=== PATIENT | male | born 1965 | race Caucasian/White ===

== ENCOUNTER 2017-06-06 19:50 | Emergency (ER) | payer SELFPAY ==
[2017-06-06 20:13] VITALS: BMI 31.7
[2017-06-06] MEDS ORDERED: DECADRON INJ IM ONE (21:48)
[2017-06-06] MEDS ORDERED: TORADOL 60 MG VIAL IM ONE (21:48)
[2017-06-06] MEDS ORDERED: FLEXERIL TAB 10 MG PO STA (21:49)
--- NOTE | 2017-06-06 21:53 | DR.GENAD ---
HPI - PCP Primary Care Physician: veda - Complaint/Symptoms Chief Complaint Doctors Comments: Patient is complaining of lower back pain for the past two days getting worst today after falling down the steps at home when his left leg gave out. states he has poor circulation in his legs and they give out at times and he was going down the steps and his legs gave out and he could not catch the railing so he fell down the steps to the ground earlier today. States the pain is 8 of 10. He denies dysuria, hematuria, cold, cough, fever or chills. State he took medicines earlier today but it did not help. Chief Complaint:: back pain Self Treatment fo Chief Complaint: pt took some muscle relaxers but didnot help. last medication taken zanaflew 4mg at around 1400 today - Nurses notes reviewed Nurses Notes Review: Yes - Source History Provided: Patient - Mode of Arrival Mode of Arrival: Ambulatory - Timing Onset of Chief Complaint: 06/03/17 Came on: Gradually - Duration Duration: Constant How lon Duration: Days - Location Location: walking and climbing steps - Severity Severity: Moderate - Modifying Factors Worsens:: movement Improves:: rest PMH - PMH Past Medical History: Yes Past Medical History: Coronary Artery Disease, Dyslipidemia, GERD, Hypertension Past Medical History Comment: pad Past Surgical History: Yes Surgical History: Angioplasty/Stents, Appendectomy - Family History History of Family Medical Conditions: Yes Family Medical History: Diabetes Mellitus, Hypertension - Social History Does patient currently use any type of tobacco product: Yes Have you used tobacco products in the last 12 months: Yes Type of Tobacco Use: Cigarettes Does any household member use tobacco: No Alcohol Use: None Do you use any recreational Drugs:: No Lives With: Alone, Spouse Lives Where: Home - infectious screening In the last 2 months have you had wt loss of >10#?: NO Have you had fever, night sweats or hemotysis?: No Have you traveled outside the country in the last 6 months?: No Isolation: Standard ROS - Review of Systems Constitutional: No Symptoms Reported. negative: See HPI, Chills, Diaphoresis, Fever, Malaise, Weakness, Irritable, Fatigue, Loss of Appetite, Other Eyes: No Symptoms Reported. negative: See HPI, Eye Pain, Blurred Vision, Tearing, Discharge, Photophobia, Diplopia, Other ENTM: No Symptoms Reported. negative: See HPI, Ear Pain, Ear Discharge, Pulling on Ears, Hearing Loss, Nose Pain, Nose Discharge, Epistaxis, Nose Congestion, Mouth Pain, Mouth Swelling, Loose Teeth, Drooling, Throat Pain, Throat Swelling, Ear Foreign Body Respiratoy: No Symptoms Reported. negative: See HPI, Productive Cough, Non- Productive Cough, Moist Cough, Dry Cough, Hacking Cough, Barking Cough, Brassy Cough, Orthopnea, Short of Breath, Stridor, Wheezing, Hemoptysis, Other Cardiovascular: No Symptoms Reported. negative: See HPI, Chest Pain, Edema, Palpitations, Syncope, Cyanosis, Skin Mottling, Other Gastrointestinal/Abdominal: No Symptoms Reported. negative: See HPI, Abdominal Pain, Constipation, Diarrhea, Nausea, Vomiting, Food Intolerance, Other Genitourinary: No Symptoms Reported. negative: See HPI, Discharge, Dysuria, Frequency, Hematuria, Pain, Bleeding, Other Neurological: No Symptoms Reported, Problems Walking. negative: See HPI, Anxiety, Depressed, Emotional Problems, Headache, Numbness, Paresthesia, Pre- existing Deficit, Seizure, Tingling, Tremors, Weakness, Dizziness, Speech Problem, Other Musculoskeletal: No Symptoms Reported, Back Pain Integumentary: No Symptoms Reported Hematologic/Lymphatic: No Symptoms Reported Endocrine: No Symptoms Reported Psychiatric: No Symptoms Reported. negative: See HPI, Anxiety, Depression, Hallucinations, Excessive crying, Suicidal, Other PE - Vital Signs Vitals: Temperature 98.4 F Pulse Rate 59 Respiratory Rate 17 Blood Pressure 167/97 O2 Sat by Pulse Oximetry 99 - General Limitations: No Limitations General Appearance: Alert, In Distress (moderate). negative: In No Apparent Distress, Appears Intoxicated, Anxious, Lethargic, Obtunded, Obese, Cachectic, Other - Head Head Exam: Normal Inspection, Atraumatic, Normocephalic - Eyes Eye exam: Normal Appearance, PERRL, EOMI. negative: Scleral Icterus, Conjunctival Injection, Nystagmus, Miosis, Mydrasis, Periorbital Swelling, Periorbital Tenderness, Other - ENT ENT Exam: Normal Exam, Normal Oropharynx, Normal External Ear Exam, Mucous Membranes Moist, TM's Normal Bilaterally External Ear Exam: Normal External Inspection TM/Canal Exam: Bilateral Normal Nose Exam: Normal Nose Exam Mouth Exam: Normal Inspection. negative: Drooling, Trismus, Lip Swelling, Tongue Elevation, Tongue Swelling, Laceration, Other Throat Exam: Normal Inspection. negative: Tonsillar Erythema, Tonsillomegaly, Tonsillar Exudate, R Peritonsillar Mass, L Peritonsillar Mass, Muffled Voice, Other - Neck Neck Exam: Normal Inspection, Full ROM, Trachea Midline. negative: Tenderness, Meningismus, Lymphadenopathy, Thyromegaly, Other - Chest Chest Inspection: Normal Inspection, Symmetric Chest Wall Rise. negative: Tenderness, Rash, Abscess, Other - Respiratory Respiratory Exam: Normal Lung Sounds Bilat Respiratory Exam: Bilateral Clear to Auscultation - Cardiovascular Cardiovascular Exam: Regular Rate, Normal Rhythm, Normal Heart Sounds - Abdominal Exam Abdominal Exam: Normal Inspection, Normal Bowel Sounds, Soft Abdominal Tenderness: negative: RUQ, RLQ, LUQ, LLQ, Epigastrium, Suprapubic, Diffuse, Mild, Moderate, Severe, Other - Extremities Extremities Exam: Normal Inspection, Full ROM, Normal Capillary Refill. negative: Tenderness - Back Back Exam: Normal Inspection, Full ROM. negative: Tenderness - Neurologic Neurological Exam: Alert, Oriented X3, CN II-XII Intact, Normal Gait, Reflexes Normal - Psychiatric Psychiatric Exam: Normal Affect, Normal Mood. negative: Depressed, Agitated, Anxious, Flat Affect, Manic, Homicidal Ideation, Suicidal Ideation, Other - Skin Skin Exam: Warm, Dry, Intact, Normal Color. negative: Rash, Cyanosis, Diaphoresis, Erythema, Pallor, Mottled, Other ROR - Labs Reviewed Laboratory Results Reviewed?: Yes (all labs and x-ray results reviewed and discussed with patient) Laboratory: Specimen Type Clean catch urine 06/06/17 21:53 Urine Color Yellow (YELLOW) 06/06/17 21:53 Urine Appearance Clear (CLEAR) 06/06/17 21:53 Urine pH 6.0 (5.0 - 8.0) 06/06/17 21:53 Ur Specific [place] 1.010 (1.000-1.030) 06/06/17 21:53 Urine Protein Negative (NEGATIVE) 06/06/17 21:53 Urine Glucose (UA) Negative (NEGATIVE) 06/06/17 21:53 Urine Ketones Negative (NEGATIVE) 06/06/17 21:53 Urine Occult Blood Negative (NEGATIVE) 06/06/17 21:53 Urine Nitrite Negative (NEGATIVE) 06/06/17 21:53 Urine Bilirubin Negative (NEGATIVE) 06/06/17 21:53 Urine Urobilinogen Normal (NORMAL) 06/06/17 21:53 Ur Leukocyte Esterase Negative (NEGATIVE) 06/06/17 21:53 Urine RBC 0-3 /HPF (NEGATIVE) 06/06/17 21:53 Urine WBC 0-3 /HPF (NEGATIVE) 06/06/17 21:53 Ur Squamous Epith Cells Rare /HPF (NEGATIVE) 06/06/17 21:53 Urine Bacteria Negative /HPF (NEGATIVE) 06/06/17 21:53 Ur Culture Indicated? No/not indicated 06/06/17 21:53 - XRAY XRAY Interpreted by: Radiologist (CT lumbar spine: No acute lumbar spine fracture or subluxation) - Diagnosis Discharge Problem: Fall (on) (from) other stairs and steps, initial encounter, Musculoskeletal back pain Low back pain Qualifiers: Sciatica presence: without sciatica - Discharge Plan Disposition: 01 HOME, SELF-CARE Condition: Stable Prescriptions: Cyclobenzaprine HCl [FLEXERIL 10 MG *] 10 mg PO BID #14 tab Ibuprofen [MOTRIN TAB 800 MG *] 800 mg PO BID PRN #40 tab PRN Reason: Pain/Inflammation - Follow ups/Referrals Follow ups/Referrals: PHAM SAMAYOA [Primary Care Provider] - 3 days GWENDOLYN LE [STAFF PHYSICIAN] - 3 days - Instructions Instructions: Back Pain, Adult, [id number], Fall Prevention in the Home, Easy -to-Read, Musculoskeletal Pain
[2017-06-06] MEDS ORDERED: TORADOL 60 MG VIAL ONE (22:01)
[2017-06-06] MEDS ORDERED: DECADRON INJ ONE (22:01)
[2017-06-06] MEDS ORDERED: FLEXERIL TAB 10 MG ONE (22:01)
[2017-06-06 22:34] LABS: APPEARANCE,URINE CLEAR (CLEAR); COLOR,URINE YELLOW (YELLOW)
[2017-06-06 22:35] LABS: BILIRUBIN,URINE NEGATIVE (NEGATIVE); BLOOD/HEMOGLOBIN,URINE NEGATIVE (NEGATIVE); GLUCOSE, URINE NEGATIVE (NEGATIVE); KETONES,URINE NEGATIVE (NEGATIVE); NITRITES,URINE NEGATIVE (NEGATIVE); PROTEIN,URINE NEGATIVE (NEGATIVE); UROBILINOGEN,URINE NORMAL (NORMAL)
[2017-06-06 22:36] LABS: BACTERIA,URINE NEGATIVE /HPF (NEGATIVE); LEUKOCYTE ESTERASE ,URINE NEGATIVE (NEGATIVE); RBC,URINE 0-3 /HPF (NEGATIVE); SQUAMOUS EPITHELIAL CELL,UR RARE /HPF (NEGATIVE)
--- NOTE | 2017-06-06 23:33 | CT ---
CT lumbar spine without contrast Indication: Low back pain after fall Comparison: None Technique: CT images of the lumbar spine were obtained without contrast. Automatic exposure control w as utilized. Findings: The lumbar spine alignment is normal. No acute fracture or subluxation is seen. There is no evidence for high-grade neural foraminal or spinal canal narrowing for within CT limitations. Impression: No acute lumbar spine fracture or subluxation. Reported By:
[2017-06-07 00:17] VITALS: BP 155/88
== END 2017-06-07 00:10 | disposition home or self-care (01) ==
LOC: EDBD 19:50 → ER 19:50
DX: M79.1 Myalgia (principal); M54.5 Low back pain; W10.9XXA Fall (on) (from) unspecified stairs and steps, initial encounter
CPT/HCPCS: 72131; 81001; 96372; 99282; 99283; J1100; J1885

== ENCOUNTER 2017-08-02 10:35 | Emergency (ER) | payer SELFPAY ==
[2017-08-02 10:42] VITALS: BP 174/83; BMI 31.0
--- NOTE | 2017-08-02 11:20 | DR.GENAD ---
HPI - PCP Primary Care Physician: JUMANA - Complaint/Symptoms Chief Complaint Doctors Comments: Patient states that he has a history of back and neck pain. He denies any trauma. Chief Complaint:: PT C/O HAVING NECK AND BACK OF HEAD PAIN AND STIFFNESS. PT STATES THESS SYMPTOMS STARTED THURSDAY AND HE CAN NOT MOVE HIS NECK WITHOUT MOVING HIS WHOLE BODY. - Source History Provided: Patient - Mode of Arrival Mode of Arrival: Ambulatory - Timing Onset of Chief Complaint: 07/31/17 PMH - PMH Past Medical History: Yes Past Medical History: Coronary Artery Disease, Dyslipidemia, GERD, Hypertension Past Medical History Comment: BLOOD CLOTS (LEG) Past Surgical History: Yes Surgical History: Angioplasty/Stents, Appendectomy - Family History History of Family Medical Conditions: Yes Family Medical History: Diabetes Mellitus, Hypertension - Social History Does any household member use tobacco: No Alcohol Use: None Do you use any recreational Drugs:: No Lives With: Family Lives Where: Home - infectious screening In the last 2 months have you had wt loss of >10#?: NO Have you had fever, night sweats or hemotysis?: No Have you traveled outside the country in the last 6 months?: No Isolation: Standard ROS - Review of Systems Constitutional: No Symptoms Reported Eyes: No Symptoms Reported ENTM: No Symptoms Reported Respiratoy: No Symptoms Reported Cardiovascular: No Symptoms Reported Gastrointestinal/Abdominal: No Symptoms Reported Genitourinary: No Symptoms Reported Neurological: No Symptoms Reported Musculoskeletal: No Symptoms Reported Integumentary: No Symptoms Reported Hematologic/Lymphatic: No Symptoms Reported Endocrine: No Symptoms Reported Psychiatric: No Symptoms Reported All Other Systems: Reviewed and Negative PE - Vital Signs Vitals: Temperature 97.8 F Pulse Rate 62 Respiratory Rate 20 Blood Pressure [Right Arm] 155/88 Blood Pressure 174/83 O2 Sat by Pulse Oximetry 97 - General General Appearance: Alert - Head Head Exam: Normal Inspection, Atraumatic - Eyes Eye exam: Normal Appearance, PERRL, EOMI - ENT ENT Exam: Normal Exam External Ear Exam: Normal External Inspection TM/Canal Exam: Bilateral Normal Nose Exam: Normal Nose Exam, Sinus Tenderness Mouth Exam: Normal Inspection Throat Exam: Normal Inspection - Neck Neck Exam: Normal Inspection - Chest Chest Inspection: Normal Inspection - Respiratory Respiratory Exam: Normal Lung Sounds Bilat Respiratory Exam: Bilateral Clear to Auscultation - Cardiovascular Cardiovascular Exam: Regular Rate, Normal Rhythm - Abdominal Exam Abdominal Exam: Normal Inspection Abdominal Tenderness: negative: RUQ, RLQ, LUQ, LLQ, Epigastrium, Suprapubic, Diffuse, Mild, Moderate, Severe, Other - Extremities Extremities Exam: Normal Inspection, Full ROM - Back Back Exam: Normal Inspection, Full ROM - Neurologic Neurological Exam: Alert, Oriented X3, CN II-XII Intact - Psychiatric Psychiatric Exam: Normal Affect, Normal Mood - Skin Skin Exam: Warm, Dry, Intact ROR - XRAY XRAY Interpreted by: Radiologist (C-Spine: negative) - Diagnosis Discharge Problem: Cervical spine pain - Discharge Plan Condition: Stable - Follow ups/Referrals Follow ups/Referrals: JUAN DENNEY [Primary Care Provider] - 3 days - Instructions
--- NOTE | 2017-08-02 12:37 | RAD ---
HISTORY: Neck and back pain Study: Three-view cervical spine Comparison: None Findings: AP and lateral radiographs of the cervical spine demonstrate normal alignment from the craniocervical junction to the level of T1. The central canal appears patent without posterior element abnormality . No prevertebral soft tissue swelling can be identified. The odontoid appears intact. The lateral masses of C1 align with the body of C2. IMPRESSION: 1. Unremarkable examination of the cervical spine. Reported By:
[2017-08-02] MEDS ORDERED: TORADOL 60 MG VIAL IM ONE (13:00)
[2017-08-02] MEDS ORDERED: TORADOL 60 MG VIAL ONE (13:04)
== END 2017-08-02 13:13 | disposition home or self-care (01) ==
LOC: ER 10:46
DX: M54.2 Cervicalgia (principal)
CPT/HCPCS: 72040; 96372; 99282; 99283; J1885

== ENCOUNTER 2017-08-16 20:19 | Emergency (ER) | payer SELFPAY ==
[2017-08-16 20:28] VITALS: BP 149/91; BMI 30.5
--- NOTE | 2017-08-16 21:43 | DR.GENAD ---
HPI - PCP Primary Care Physician: jim gasca - HPI Comment HPI Comment: NO TRAUMA. PAIN GETTING SEVERE. NO FEVER. - Complaint/Symptoms Chief Complaint Doctors Comments: CHEST PAIN WITH SOB FOR FEW DAYS. OCCIPITAL HEADACHE AND PAIN. Chief Complaint:: Patient states shortness of breath; head pain- occipital. Patient reports ongoing for two weeks. Admits to moist, productive cough. Patient reports chest pain is related to shortness of breath. Patient reports head pain is worsened with lying flat. Self Treatment fo Chief Complaint: Toradol oral, Ibuprofen, Tylenol, with no improvement. - Nurses notes reviewed Nurses Notes Review: Yes - Source History Provided: Patient - Mode of Arrival Mode of Arrival: Ambulatory - Timing Onset of Chief Complaint: 08/02/17 Came on: Suddenly - Duration Duration: Constant Duration: Days - Severity Severity: Moderate PMH - PMH Past Medical History: Yes Past Medical History: Coronary Artery Disease, Dyslipidemia, GERD, Hypertension Past Surgical History: Yes Surgical History: Angioplasty/Stents, Appendectomy - Family History History of Family Medical Conditions: Yes Family Medical History: Diabetes Mellitus, Hypertension - Social History Type of Tobacco Use: Cigarettes Alcohol Use: None Do you use any recreational Drugs:: No Lives With: Spouse Lives Where: Home - infectious screening In the last 2 months have you had wt loss of >10#?: NO Have you had fever, night sweats or hemotysis?: No Have you traveled outside the country in the last 6 months?: No Isolation: Standard ROS - Review of Systems Constitutional: Fever. negative: Chills Eyes: negative: Eye Pain, Discharge ENTM: Nose Discharge, Nose Congestion. negative: Ear Pain Respiratoy: No Symptoms Reported Cardiovascular: No Symptoms Reported Gastrointestinal/Abdominal: No Symptoms Reported Genitourinary: No Symptoms Reported Neurological: Headache, Dizziness Musculoskeletal: Muscle Pain Integumentary: No Symptoms Reported Hematologic/Lymphatic: No Symptoms Reported Endocrine: No Symptoms Reported All Other Systems: Reviewed and Negative PE - Vital Signs Vitals: Temperature 98.2 F Pulse Rate 72 Respiratory Rate 20 Blood Pressure [Right Arm] 155/88 Blood Pressure 149/91 O2 Sat by Pulse Oximetry 97 - General Limitations: No Limitations General Appearance: Alert - Head Head Exam: Normal Inspection - Eyes Eye exam: Normal Appearance - ENT ENT Exam: Normal External Ear Exam External Ear Exam: Normal External Inspection TM/Canal Exam: Bilateral Bulging Nose Exam: Sinus Tenderness Mouth Exam: Normal Inspection Throat Exam: Tonsillar Erythema. negative: Tonsillomegaly, Tonsillar Exudate - Neck Neck Exam: Trachea Midline - Chest Chest Inspection: Symmetric Chest Wall Rise - Respiratory Respiratory Exam: Normal Lung Sounds Bilat Respiratory Exam: Bilateral Clear to Auscultation - Cardiovascular Cardiovascular Exam: Regular Rate, Normal Rhythm, Normal Heart Sounds - Abdominal Exam Abdominal Exam: Normal Bowel Sounds, Soft. negative: Tenderness - Extremities Extremities Exam: Normal Inspection - Back Back Exam: Normal Inspection - Neurologic Neurological Exam: Alert, Oriented X3 - Psychiatric Psychiatric Exam: Normal Affect, Normal Mood - Skin Skin Exam: Normal Color MDM - Differential Diagnosis Differential Diagnosis: CVA, BRAIN TUMOR, SINUSITIS, MASTIODITIS Course - Treatment Treatment: SEE ORDERS. - Education/Counseling Education/Counseling: Patient, Education Educated On: Diagnosis, Needs for Follow Up ROR - Labs Reviewed Laboratory Results Reviewed?: Yes Result Diagrams: 08/16/17 21:53 08/16/17 21:53 Laboratory: WBC 17.3 X10^3/uL (3.6-10.0) H 08/16/17 21:53 RBC 5.78 X10^6/uL (4.7-6.0) 08/16/17 21:53 Hgb 15.9 g/dL (13.5-18.0) 08/16/17 21:53 Hct 46.1 % (42.0-54.0) 08/16/17 21:53 MCV 79.7 fL (80.0-100.0) L 08/16/17 21:53 MCH 27.4 pg (27.0-34.0) 08/16/17 21:53 MCHC 34.4 g/dL (33.0-35.0) 08/16/17 21:53 RDW 14.6 % (11.6-16.5) 08/16/17 21:53 Plt Count 309 X10^3/uL (150.0-450.0) 08/16/17 21:53 MPV 8.4 fL (7.4-11.0) 08/16/17 21:53 Neut % 60.3 % (42.0-75.0) 08/16/17 21:53 Lymph % 29.0 % (21.0-51.0) 08/16/17 21:53 [place] % 8.1 % (0.0-13.0) 08/16/17 21:53 Eos % 1.7 % (0.9-2.9) 08/16/17 21:53 Baso % 0.9 % (0.2-1.0) 08/16/17 21:53 Neut # 10.4 x10^3/uL (2.2-4.8) H 08/16/17 21:53 Lymph # 5.0 X10^3/uL (1.3-2.9) H 08/16/17 21:53 [place] # 1.4 x10^3/uL (0.3-0.8) H 08/16/17 21:53 Eos # 0.3 x10^3/uL (0.0-0.2) H 08/16/17 21:53 Baso # 0.2 X10^3/uL (0.0-0.1) H 08/16/17 21:53 Absolute Nucleated RBC 0.1 /100WBC 08/16/17 21:53 Sodium 138 mmol/L (136-145) 08/16/17 21:53 Corrected Sodium TNP 08/16/17 21:53 Potassium 3.9 mmol/L (3.5-5.1) 08/16/17 21:53 Chloride 102 mmol/L (98-107) 08/16/17 21:53 Carbon Dioxide 24.2 mmol/L (21-32) 08/16/17 21:53 BUN 17 mg/dL (7-18) 08/16/17 21:53 Creatinine 1.12 mg/dL (0.70-1.30) 08/16/17 21:53 Est GFR (MDRD) Af Amer > 60 (>60) 08/16/17 21:53 Est GFR (MDRD) Non-Af > 60 (>60) 08/16/17 21:53 Glucose 110 mg/dL (65-99) H 08/16/17 21:53 Calcium 9.0 mg/dL (8.5-10.1) 08/16/17 21:53 Corrected Calcium TNP 08/16/17 21:53 Total Bilirubin 0.10 mg/dL (0.2-1.0) L 08/16/17 21:53 AST 7 Units/L (15-37) L 08/16/17 21:53 ALT 28 Units/L (12-78) 08/16/17 21:53 Alkaline Phosphatase 110 Units/L (46-116) 08/16/17 21:53 Total Protein 7.0 g/dL (6.4-8.2) 08/16/17 21:53 Albumin 3.7 g/dL (3.4-5.0) 08/16/17 21:53 Globulin 3.3 g/dL (2.5-4.5) 08/16/17 21:53 Albumin/Globulin Ratio 1.1 Ratio (1.1-2.1) 08/16/17 21:53 Specimen Type Clean catch urine 08/16/17 21:44 Urine Color Yellow (YELLOW) 08/16/17 21:44 Urine Appearance Clear (CLEAR) 08/16/17 21:44 Urine pH 6.0 (5.0 - 8.0) 08/16/17 21:44 Ur Specific [place] 1.020 (1.000-1.030) 08/16/17 21:44 Urine Protein Negative (NEGATIVE) 08/16/17 21:44 Urine Glucose (UA) Negative (NEGATIVE) 08/16/17 21:44 Urine Ketones Negative (NEGATIVE) 08/16/17 21:44 Urine Occult Blood Negative (NEGATIVE) 08/16/17 21:44 Urine Nitrite Negative (NEGATIVE) 08/16/17 21:44 Urine Bilirubin Negative (NEGATIVE) 08/16/17 21:44 Urine Urobilinogen Normal (NORMAL) 08/16/17 21:44 Ur Leukocyte Esterase Negative (NEGATIVE) 08/16/17 21:44 Urine RBC 0-3 /HPF (NEGATIVE) 08/16/17 21:44 Urine WBC 0-3 /HPF (NEGATIVE) 08/16/17 21:44 Ur Squamous Epith Cells Rare /HPF (NEGATIVE) 08/16/17 21:44 Urine Bacteria Negative /HPF (NEGATIVE) 08/16/17 21:44 Ur Culture Indicated? No/not indicated 08/16/17 21:44 Influenza Type A (PCR) Negative (NEGATIVE) 08/16/17 21:44 Influenza Type B (PCR) Negative (NEGATIVE) 08/16/17 21:44 - XRAY XRAY Interpreted by: Radiologist XRAY Findings: REPORT DISCUSS WITH PATIENT. - EKG Rhythm: NSR (EKG NOTED) - Diagnosis Discharge Problem: Sinus headache, Musculoskeletal pain Sinusitis Qualifiers: Sinusitis location: unspecified location Chronicity: acute Recurrence: not specified as recurrent Qualified Code(s): J01.90 - Acute sinusitis, unspecified - Discharge Plan Disposition: 01 HOME, SELF-CARE Condition: Stable Prescriptions: Amoxicillin/Potassium Clav [Augmentin Xr 1,000-62.5 Tab] 1 tab PO Q12H #20 tab.sr - Follow ups/Referrals Follow ups/Referrals: JIM GASCA [Primary Care Provider] - 08/17/17 - Instructions Instructions: Sinusitis, Adult, [id number], Sinus Headache, Musculoskeletal Pain Additional Instructions: RETURN TO ED IF WORSE.
[2017-08-16 22:02] LABS: BILIRUBIN,URINE NEGATIVE (NEGATIVE); BLOOD/HEMOGLOBIN,URINE NEGATIVE (NEGATIVE); GLUCOSE, URINE NEGATIVE (NEGATIVE); KETONES,URINE NEGATIVE (NEGATIVE); LEUKOCYTE ESTERASE ,URINE NEGATIVE (NEGATIVE); NITRITES,URINE NEGATIVE (NEGATIVE); PROTEIN,URINE NEGATIVE (NEGATIVE); UROBILINOGEN,URINE NORMAL (NORMAL)
[2017-08-16 22:02] LABS: BASOPHILS # (AUTO) 0.2 X10^3/uL (0.0-0.1); BASOPHILS % (AUTO) 0.9 % (0.2-1.0); EOSINOPHILS # (AUTO) 0.3 x10^3/uL (0.0-0.2); EOSINOPHILS % (AUTO) 1.7 % (0.9-2.9); HEMATOCRIT 46.1 % (42.0-54.0); HEMOGLOBIN 15.9 g/dL (13.5-18.0); MEAN CORPUSCULAR HEMOGLOBIN 27.4 pg (27.0-34.0); MEAN CORPUSCULAR HGB CONC 34.4 g/dL (33.0-35.0); MEAN CORPUSCULAR VOLUME 79.7 fL (80.0-100.0); MEAN PLATELET VOLUME 8.4 fL (7.4-11.0); MONOCYTES # (AUTO) 1.4 x10^3/uL (0.3-0.8); MONOCYTES % (AUTO) 8.1 % (0.0-13.0); NEUTROPHILS # (AUTO) 10.4 x10^3/uL (2.2-4.8); NEUTROPHILS % (AUTO) 60.3 % (42.0-75.0); PLATELET COUNT 309 X10^3/uL (150.0-450.0); RED BLOOD COUNT 5.78 X10^6/uL (4.7-6.0); RED CELL DISTRIBUTION WIDTH 14.6 % (11.6-16.5); WHITE BLOOD COUNT 17.3 X10^3/uL (3.6-10.0)
[2017-08-16 22:15] LABS: ALANINE AMINOTRANSFERASE 28 Units/L (12-78); ALBUMIN 3.7 g/dL (3.4-5.0); ALKALINE PHOSPHATASE 110 Units/L (46-116); ASPARTATE AMINO TRANSFERASE 7 Units/L (15-37); BLOOD UREA NITROGEN 17 mg/dL (7-18); CARBON DIOXIDE 24.2 mmol/L (21-32); CHLORIDE 102 mmol/L (98-107); CREATININE 1.12 mg/dL (0.70-1.30); SODIUM 138 mmol/L (136-145); eGFR BLACK RACES > 60 (>60); eGFR NON BLACK RACES > 60 (>60)
--- NOTE | 2017-08-16 22:15 | CT ---
CT brain without contrast Indication: Occipital headache Comparison: None available Technique: Multiple axial images of the brain were obtained from the skull base to the vertex without administra tion of IV contrast. Findings: No acute intraparenchymal hemorrhage or mass can be identified. No extra-axial fluid collections are seen. No alteration in the attenuation of the brain parenchyma can be identified to suggest acute o r subacute ischemic change. The ventricular system is symmetric and nondilated. The extracranial st ructures are grossly unremarkable. IMPRESSION: 1. No acute intracranial process is identified. Reported By:
--- NOTE | 2017-08-16 22:16 | RAD ---
HISTORY: Chest pain Study: Single-view chest. Comparison: None. Findings: The trachea is midline. The cardiac silhouette is unremarkable. The lungs are clear without focal i nfiltrate or effusion. The bony thorax is unremarkable. IMPRESSION: 1. No acute cardiopulmonary disease. Reported By:
[2017-08-16 22:18] LABS: APPEARANCE,URINE CLEAR (CLEAR); BACTERIA,URINE NEGATIVE /HPF (NEGATIVE); COLOR,URINE YELLOW (YELLOW); RBC,URINE 0-3 /HPF (NEGATIVE); SQUAMOUS EPITHELIAL CELL,UR RARE /HPF (NEGATIVE)
[2017-08-16] MEDS ORDERED: NORFLEX INJ IM ONE (23:33)
[2017-08-16] MEDS ORDERED: TORADOL 60 MG VIAL IM ONE (23:33)
[2017-08-16] MEDS ORDERED: TORADOL 30 MG VIAL ONE (23:35)
[2017-08-16] MEDS ORDERED: NORFLEX INJ ONE (23:36)
[2017-08-16] MEDS ORDERED: MORPHINE SULFATE INJ 4 MG IM ONE (23:50)
[2017-08-16] MEDS ORDERED: AMOXIL CAP 500 MG PO ONE ×2 (23:52→23:59)
[2017-08-16] MEDS ORDERED: MORPHINE SULFATE INJ 4 MG ONE (23:59)
== END 2017-08-17 00:32 | disposition home or self-care (01) ==
LOC: ER 20:19
DX: J01.80 Other acute sinusitis (principal); R51 Headache; M79.1 Myalgia
CPT/HCPCS: 36415; 70450; 71045; 80053; 81001; 85025; 87502; 93005; 93010; 96372; 99283; J1885; J2270; J2360

== ENCOUNTER 2017-08-20 13:55 | Emergency (ER) | payer SELFPAY ==
[2017-08-20 13:56] VITALS: BP 149/91
[2017-08-20 14:06] VITALS: BMI 30.5
--- NOTE | 2017-08-20 16:16 | DR.HEADACH ---
HPI - Time Seen Time seen: 16:15 - Primary Care Physician Primary Care Physician: LUCIO DENNEY - HPI Comment HPI Comment: He was referred for re-evaluation of elevated WBC by her PCP. The records indicates that he was seen here on 08/16/17 and dx. with Sinusitis. He was issued an rx. for Augmentin 1000mg, which he never got filled as the cost to him was $140s. He still has the headache complain. - Complaint/Symptoms Chief Complaint:: PT STATES " WHEN I WAS HERE MY BLOOD COUNT WAS 17, 000 AND I COULD NOT AFFORD TO GET MY ABX SO I CALLED MY DOCTOR AND I WAS TOLD TO COME AND GET CHECKED B/C I MAY BE SEPTIC". Self Treatment fo Chief Complaint: PT WAS GIVEN MEDS WHILE IN ER , - Source History Provided: Patient - Mode of Arrival Mode of Arrival: Ambulatory - Timing Onset of Chief Complaint: 07/28/17 PMH - PMH Past Medical History: Yes Past Medical History: Coronary Artery Disease, Dyslipidemia, GERD, Hypertension Past Medical History Comment: DVT.S , HTN , TIA, Past Surgical History: Yes Surgical History: Angioplasty/Stents - Family History History of Family Medical Conditions: No Family Medical History: Diabetes Mellitus, Hypertension - Social History Does patient currently use any type of tobacco product: Yes Have you used tobacco products in the last 12 months: Yes Type of Tobacco Use: Cigarettes How many years tobacco product used: 30 Does any household member use tobacco: No Alcohol Use: None Do you use any recreational Drugs:: No Lives With: Family Lives Where: Home - infectious screening In the last 2 months have you had wt loss of >10#?: NO Have you had fever, night sweats or hemotysis?: No Have you traveled outside the country in the last 6 months?: No Isolation: Standard ROS - Review of Systems Constitutional: No Symptoms Reported Eyes: No Symptoms Reported ENTM: No Symptoms Reported Respiratoy: No Symptoms Reported Cardiovascular: No Symptoms Reported Gastrointestinal/Abdominal: No Symptoms Reported Genitourinary: No Symptoms Reported Neurological: Headache Musculoskeletal: No Symptoms Reported Integumentary: No Symptoms Reported Hematologic/Lymphatic: No Symptoms Reported Endocrine: No Symptoms Reported Psychiatric: No Symptoms Reported PE - Vital Signs Vitals: Temperature 97.7 F Respiratory Rate 20 Blood Pressure [Right Arm] 155/88 Blood Pressure 149/91 - General General Appearance: Alert, In No Apparent Distress - Head Head Exam: Normal Inspection - Eyes Eye exam: Normal Appearance - ENT ENT Exam: Normal Exam - Neck Neck Exam: Normal Inspection, Full ROM - Chest Chest Inspection: Normal Inspection - Respiratory Respiratory Exam: Normal Lung Sounds Bilat - Cardiovascular Cardiovascular Exam: Regular Rate, Normal Rhythm, +S1, +S2 - Abdominal Exam Abdominal Exam: Normal Inspection, Normal Bowel Sounds, Soft - Extremities Extremities Exam: Normal Inspection, Full ROM - Back Back Exam: Normal Inspection - Neurologic Neurological Exam: Alert, Oriented X3 - Psychiatric Psychiatric Exam: Normal Affect, Normal Mood - Skin Skin Exam: Warm, Dry, Intact, Normal Color ROR - Labs Reviewed Result Diagrams: 08/20/17 16:37 Laboratory: WBC 13.3 X10^3/uL (3.6-10.0) H 08/20/17 16:37 RBC 5.68 X10^6/uL (4.7-6.0) 08/20/17 16:37 Hgb 15.9 g/dL (13.5-18.0) 08/20/17 16:37 Hct 45.4 % (42.0-54.0) 08/20/17 16:37 MCV 79.8 fL (80.0-100.0) L 08/20/17 16:37 MCH 27.9 pg (27.0-34.0) 08/20/17 16:37 MCHC 35.0 g/dL (33.0-35.0) 08/20/17 16:37 RDW 14.5 % (11.6-16.5) 08/20/17 16:37 Plt Count 303 X10^3/uL (150.0-450.0) 08/20/17 16:37 MPV 8.5 fL (7.4-11.0) 08/20/17 16:37 Neut % 60.6 % (42.0-75.0) 08/20/17 16:37 Lymph % 27.1 % (21.0-51.0) 08/20/17 16:37 Placer % 9.8 % (0.0-13.0) 08/20/17 16:37 Eos % 1.6 % (0.9-2.9) 08/20/17 16:37 Baso % 0.9 % (0.2-1.0) 08/20/17 16:37 Neut # 8.1 x10^3/uL (2.2-4.8) H 08/20/17 16:37 Lymph # 3.6 X10^3/uL (1.3-2.9) H 08/20/17 16:37 Placer # 1.3 x10^3/uL (0.3-0.8) H 08/20/17 16:37 Eos # 0.2 x10^3/uL (0.0-0.2) 08/20/17 16:37 Baso # 0.1 X10^3/uL (0.0-0.1) 08/20/17 16:37 Absolute Nucleated RBC 0.0 /100WBC 08/20/17 16:37 - Diagnosis Discharge Problem: Sinusitis - Discharge Plan Disposition: 01 HOME, SELF-CARE Condition: Stable - Follow ups/Referrals Follow ups/Referrals: NFD,None [Primary Care Provider] - 3 days - Instructions
[2017-08-20 16:44] LABS: BASOPHILS # (AUTO) 0.1 X10^3/uL (0.0-0.1); BASOPHILS % (AUTO) 0.9 % (0.2-1.0); EOSINOPHILS # (AUTO) 0.2 x10^3/uL (0.0-0.2); EOSINOPHILS % (AUTO) 1.6 % (0.9-2.9); HEMATOCRIT 45.4 % (42.0-54.0); HEMOGLOBIN 15.9 g/dL (13.5-18.0); LYMPHOCYTES # (AUTO) 3.6 X10^3/uL (1.3-2.9); LYMPHOCYTES % (AUTO) 27.1 % (21.0-51.0); MEAN CORPUSCULAR HEMOGLOBIN 27.9 pg (27.0-34.0); MEAN CORPUSCULAR VOLUME 79.8 fL (80.0-100.0); MEAN PLATELET VOLUME 8.5 fL (7.4-11.0); MONOCYTES # (AUTO) 1.3 x10^3/uL (0.3-0.8); MONOCYTES % (AUTO) 9.8 % (0.0-13.0); NEUTROPHILS # (AUTO) 8.1 x10^3/uL (2.2-4.8); NEUTROPHILS % (AUTO) 60.6 % (42.0-75.0); PLATELET COUNT 303 X10^3/uL (150.0-450.0); RED BLOOD COUNT 5.68 X10^6/uL (4.7-6.0); RED CELL DISTRIBUTION WIDTH 14.5 % (11.6-16.5); WHITE BLOOD COUNT 13.3 X10^3/uL (3.6-10.0)
== END 2017-08-20 17:07 | disposition home or self-care (01) ==
LOC: ER 14:15
DX: J32.9 Chronic sinusitis, unspecified (principal)
CPT/HCPCS: 36415; 85025; 99282

== ENCOUNTER 2025-01-30 16:41 | Observation (INO) ==
--- NOTE | 2025-01-30 17:22 | EKG ---
Test Reason : sob Blood Pressure : */* mmHG Vent. Rate : 72 BPM Atrial Rate : 72 BPM P-R Int : 160 ms QRS Dur : 160 ms QT Int : 446 ms P-R-T Axes : 22 225 90 degrees QTc Int : 488 ms Atrial-sensed ventricular-paced rhythm /pvcs Biventricular pacemaker detected Abnormal ECG When compared with ECG of 11-OCT-2024 16:33, Vent. rate has increased BY 10 BPM Confirmed by Mark Brice MD ([id number]) on 01/31/2025 7:18:58 AM Referred By: Confirmed By: Mark Brice MD
[2025-01-30 17:27] LABS: MEAN PLATELET VOLUME 9.0 fL (7.4-11.0); RED CELL DISTRIBUTION WIDTH 16.2 % (11.6-16.5)
[2025-01-30 17:38] LABS: COR NA(FOR HYPERGLY) 138 mmol/L (136-145); CREATININE 1.53 mg/dL (0.70-1.30); eGFR NON BLACK RACES 50 (>60)
[2025-01-30 17:42] LABS: BLOOD/HEMOGLOBIN,URINE NEGATIVE (NEGATIVE); LEUKOCYTE ESTERASE ,URINE NEGATIVE (NEGATIVE); NITRITES,URINE NEGATIVE (NEGATIVE)
[2025-01-30 17:44] LABS: APPEARANCE,URINE CLEAR (CLEAR)
--- NOTE | 2025-01-30 18:49 | CT ---
EXAM: ABDOMEN/PELVIS W/O CON HISTORY: c/o left CW pain that radiates to left shoulder since Thursday; rates pain 4/10; last NTG taken on Thursday was effective for pain relief. c/o weakness and feeling tired, aching all over; SOB; COMPARISON: None. TECHNIQUE: Non-contra sted axial CT images of the abdomen and pelvis were obtained and reformatted into coronal and sagittal planes for further evaluation. Radiation dose: 355.98 mGy-cm total DLP FINDINGS: Lung bases are clear. Pacemaker wires in place. Stomach appears normal. Diffuse fatty infiltration of the liver. Spleen, pancreas and adrenal glands are unremarkable. Gallbladder appears normal. No intra or extrahepatic biliary dilatation. Unremarkable appearance of the kidneys. No hydronephrosis, hydroureter or ureteral calculus. Unremarkable appearance of the urinary bladder. Normal appearance of the small and large bowel. Reproductive structures are unremarkable. No evidence of acute appendicitis. No pneumoperitoneum. No significant fluid collection. No adenopathy. No acute osseous abnormality. IMPRESSION: 1. No acute intra-abdominal abnormality detected. 2. Diffuse fatty infiltration of the liver. THIS IS AN ELECTRONICALLY VERIFIED FINAL REPORT 01/30/2025 6:46 PM - Electronically signed by Alejandro Smith MD
--- NOTE | 2025-01-30 18:53 | DR.SOBA ---
HPI Time Seen Time Seen by Provider: 01/30/25 16:57 Primary Care Physician Primary Care Physician: Ruben Sorensen HPI Comment HPI Comment: Patient with dyspnea on exertion and left shoulder pain since Thursday. With a history of coronary artery disease and pacemaker. Patient states he feels tired and weak. Denies fever. Complaints Chief Complaint:: Pt c/o left CW pain that radiates to left shoulder since Thursday; rates pain 4/10; last NTG taken on Thursday was effective for pain relief. He c/o SOB with exertion and at rest; he denies he uses home O2. He c/o weakness and feeling tired, aching all over; feels like his legs "are going to break". No swelling observed in LEs. Pt states LBM was today and was WNL; he did have one episode of v/d on Thursday. Abdominal pain is substernal and epigastric in location, intermittent and when he eats food he feels like "it just sits there" COVID-19 Coronavirus risk:travel/contact w/high risk person: No Has patient experienced Coronavirus symptoms: Yes Coronavirus symptoms experienced: Shortness of Breath Source History Provided: Patient Mode of Arrival Mode of Arrival: Ambulatory Timing Onset of Chief Complaint: 01/28/25 PMH PMH Past Medical History: Yes Past Medical History: Coronary Artery Disease, Diabetes, Dyslipidemia, GERD, Gout, Hypertension, NM and Sleep Apnea Past Medical History Comment: hx DVT, neuropathy Past Surgical History: Yes Surgical History: Angioplasty/Stents and Appendectomy Past Surgical History Comment: pacemaker (pt states there is a wire from his PM that is partially broken; Dr. Kaiser is aware) Family History History of Family Medical Conditions: Yes Family Medical History: Diabetes Mellitus, Cancer, NM and Hypertension Social History Does patient currently use any type of tobacco product: Yes Have you used tobacco products in the last 12 months: Yes Type of Tobacco Use: Smokeless Does any household member use tobacco: Yes Alcohol Use: None Do you use any recreational Drugs:: No Lives With: Spouse Lives Where: Home Travel Risk Coronavirus risk:travel/contact w/high risk person: No Has patient experienced Coronavirus symptoms: Yes Coronavirus symptoms experienced: Shortness of Breath Infectious screening In the last 2 months have you had wt loss of >10#?: NO Have you had fever, night sweats or hemotysis?: No Have you traveled outside the country in the last 6 months?: No Isolation: Standard ROS Review of Systems Constitutional: No Symptoms Reported Eyes: No Symptoms Reported ENTM: No Symptoms Reported Respiratoy: Short of Breath; negative Wheezing Cardiovascular: Chest Pain; negative Edema, Palpitations or Syncope Gastrointestinal/Abdominal: No Symptoms Reported Genitourinary: No Symptoms Reported Neurological: No Symptoms Reported Musculoskeletal: No Symptoms Reported Integumentary: No Symptoms Reported Hematologic/Lymphatic: No Symptoms Reported Endocrine: No Symptoms Reported Psychiatric: No Symptoms Reported All Other Systems: Reviewed and Negative PE Vital Signs Vitals: Vital Signs Temperature 98.1 F Pulse Rate 60 Pulse Rate 60 Pulse Rate 65 Pulse Rate 68 Pulse Rate 72 Pulse Rate 64 Pulse Rate 71 Pulse Rate 68 Pulse Rate 73 Pulse Rate 62 Pulse Rate 61 Pulse Rate 63 Pulse Rate 63 Pulse Rate 60 Pulse Rate 60 Pulse Rate 56 Respiratory Rate 18 Respiratory Rate 18 Respiratory Rate 23 Respiratory Rate 19 Respiratory Rate 18 Respiratory Rate 17 Respiratory Rate 19 Respiratory Rate 18 Respiratory Rate 19 Respiratory Rate 17 Respiratory Rate 22 Respiratory Rate 23 Respiratory Rate 29 Respiratory Rate 17 Respiratory Rate 20 Blood Pressure 169/81 Blood Pressure 135/69 Blood Pressure 145/66 Blood Pressure 133/67 Blood Pressure 147/61 Blood Pressure 164/76 O2 Sat by Pulse Oximetry 98 O2 Sat by Pulse Oximetry 95 O2 Sat by Pulse Oximetry 95 O2 Sat by Pulse Oximetry 95 O2 Sat by Pulse Oximetry 96 O2 Sat by Pulse Oximetry 96 O2 Sat by Pulse Oximetry 97 O2 Sat by Pulse Oximetry 96 O2 Sat by Pulse Oximetry 98 O2 Sat by Pulse Oximetry 96 O2 Sat by Pulse Oximetry 97 O2 Sat by Pulse Oximetry 96 O2 Sat by Pulse Oximetry 97 O2 Sat by Pulse Oximetry 97 General Limitations: No Limitations General Appearance: Alert and In No Apparent Distress Head Head Exam: Normal Inspection Eyes Eye exam: Normal Appearance ENT ENT Exam: Normal Exam Neck Neck Exam: Normal Inspection Chest Chest Inspection: Normal Inspection Respiratory Respiratory Exam: Normal Lung Sounds Bilat Respiratory Exam: Bilateral: Clear to Auscultation Cardiovascular Cardiovascular Exam: Regular Rate and Normal Rhythm Abdominal Exam Abdominal Exam: Normal Inspection, Normal Bowel Sounds and Soft Extremities Extremities Exam: Normal Inspection Back Back Exam: Normal Inspection Neurologic Neurological Exam: Alert and Oriented X3 Psychiatric Psychiatric Exam: Normal Affect and Normal Mood Skin Skin Exam: Warm, Dry, Intact and Normal Color COURSE Treatment Treatment: Patient has been working out recently and per he has been out in the heat feeding animals. Discussed results of workup with patient. Patient feeling well in ER at this time. ROR Labs Reviewed Laboratory Results Reviewed?: Yes 01/30/25 17:05 01/30/25 17:05 Laboratory: WBC 9.1 X10^3/uL (3.6-10.0) 01/30/25 17:05 RBC 6.06 X10^6/uL (4.7-6.0) H 01/30/25 17:05 Hgb 15.7 g/dL (13.5-18.0) 01/30/25 17:05 Hct 47.9 % (42.0-54.0) 01/30/25 17:05 MCV 79.0 fL (80.0-100.0) L 01/30/25 17:05 MCH 25.9 pg (27.0-34.0) L 01/30/25 17:05 MCHC 32.7 g/dL (33.0-35.0) L 01/30/25 17:05 RDW 16.2 % (11.6-16.5) 01/30/25 17:05 Plt Count 179 X10^3/uL (150.0-450.0) 01/30/25 17:05 MPV 9.0 fL (7.4-11.0) 01/30/25 17:05 Neut % (Auto) 55.9 % (42.0-75.0) 01/30/25 17:05 Lymph % (Auto) 24.8 % (21.0-51.0) 01/30/25 17:05 [place] % (Auto) 16.5 % (0.0-13.0) H 01/30/25 17:05 Eos % (Auto) 2.3 % (0.9-2.9) 01/30/25 17:05 Baso % (Auto) 0.5 % (0.2-1.0) 01/30/25 17:05 Neut # (Auto) 5.1 x10^3/uL (2.2-4.8) H 01/30/25 17:05 Lymph # (Auto) 2.3 X10^3/uL (1.3-2.9) 01/30/25 17:05 [place] # (Auto) 1.5 x10^3/uL (0.3-0.8) H 01/30/25 17:05 Eos # (Auto) 0.2 x10^3/uL (0.0-0.2) 01/30/25 17:05 Baso # (Auto) 0.0 X10^3/uL (0.0-0.1) 01/30/25 17:05 Absolute Nucleated RBC 0.1 /100WBC 01/30/25 17:05 Sodium 136 mmol/L (136-145) 01/30/25 17:05 Corrected Sodium 138 mmol/L (136-145) 01/30/25 17:05 Potassium 4.1 mmol/L (3.5-5.1) 01/30/25 17:05 Chloride 100 mmol/L (98-107) 01/30/25 17:05 Carbon Dioxide 27.2 mmol/L (21-32) 01/30/25 17:05 BUN 18 mg/dL (7-18) 01/30/25 17:05 Creatinine 1.53 mg/dL (0.70-1.30) H 01/30/25 17:05 Est GFR (MDRD) Af Amer > 60 (>60) 01/30/25 17:05 Est GFR (MDRD) Non-Af 50 (>60) L 01/30/25 17:05 Glucose 181 mg/dL (65-99) H 01/30/25 17:05 Calcium 9.1 mg/dL (8.5-10.1) 01/30/25 17:05 Corrected Calcium TNP 01/30/25 17:05 Magnesium 1.5 mg/dL (2.0-2.9) L 01/30/25 17:05 Total Bilirubin 0.50 mg/dL (0.2-1.0) 01/30/25 17:05 AST 75 Units/L (15-37) H 01/30/25 17:05 ALT 56 Units/L (12-78) 01/30/25 17:05 Alkaline Phosphatase 89 Units/L (46-116) 01/30/25 17:05 Creatine Kinase 705 Units/L (39-308) H 01/30/25 19:17 Troponin I High Sens 16.3 ng/L (4.0-60.0) 01/30/25 19:17 B-Natriuretic Peptide 46.8 pg/mL (0-79) 01/30/25 17:05 Total Protein 7.2 g/dL (6.4-8.2) 01/30/25 17:05 Albumin 4.0 g/dL (3.4-5.0) 01/30/25 17:05 Globulin 3.2 g/dL (2.5-4.5) 01/30/25 17:05 Albumin/Globulin Ratio 1.3 Ratio (1.1-2.1) 01/30/25 17:05 Specimen Type Clean catch urine 01/30/25 17:19 Urine Color Yellow (YELLOW) 01/30/25 17:19 Urine Appearance Clear (CLEAR) 01/30/25 17:19 Urine pH 5.0 (5.0 - 8.0) 01/30/25 17:19 Ur Specific [place] 1.010 (1.000-1.030) 01/30/25 17:19 Urine Protein Negative (NEGATIVE) 01/30/25 17:19 Urine Glucose (UA) Negative (NEGATIVE) 01/30/25 17:19 Urine Ketones Negative (NEGATIVE) 01/30/25 17:19 Urine Blood Negative (NEGATIVE) 01/30/25 17:19 Urine Nitrite Negative (NEGATIVE) 01/30/25 17:19 Urine Bilirubin Negative (NEGATIVE) 01/30/25 17:19 Urine Urobilinogen Normal (NORMAL) 01/30/25 17:19 Ur Leukocyte Esterase Negative (NEGATIVE) 01/30/25 17:19 XRAY XRAY Interpreted by: Self (Chest x-ray reviewed and interpreted by myself. No acute cardiopulmonary findings noted. Radiologist report not available.) EKG Rate: 72 [place]: Normal Rhythm: Paced ST: Normal Opioid Opioid Risk Tool Age ([place] box if 16-45): No History of Preadolescent Sexual Abuse: No Total: 0 Total Score Risk Category: Low Risk Copyright: Aung PEREZ predicting aberrant behaviors Discharge Plan Diagnosis Discharge Problem: Chest pain, TINEO (dyspnea on exertion) Discharge Plan Patient Disposition: 09 ADMITTED INPATIENT Condition: Stable Prescriptions: No Action metformin 500 mg tablet 500 mg PO BID gabapentin 600 mg tablet 600 mg PO TID isosorbide mononitrate 30 mg tablet extended release 24 hr 30 mg PO QAM allopurinol 100 mg tablet 100 mg PO QDAY hydrocodone-acetaminophen 10-325 mg tablet 1 tab PO Q6H PRN levothyroxine 50 mcg tablet 50 mcg PO QAM pantoprazole 40 mg tablet,delayed release (DR/EC) 40 mg PO BID cyanocobalamin (vitamin B-12) 1,000 mcg/mL solution 1,000 mcg IM QMONTH testosterone cypionate 200 mg/mL oil 200 mg IM Q2W rosuvastatin 20 mg tablet 20 mg PO QDAY levocetirizine 5 mg tablet 5 mg PO QPM fenofibrate 54 mg tablet 54 mg PO QDAY Eliquis 5 mg tablet 5 mg PO BID nitroglycerin 0.4 mg tablet, sublingual 0.4 mg sublingual PRN PRN insulin lispro [Humalog KwikPen Insulin] 100 unit/mL insulin pen See Rx Instructions .ROUTE .COMPLEX Rx Instructions: PER S/S carvedilol 25 mg tablet 25 mg PO BID tizanidine 4 mg tablet 4 mg PO BID Mounjaro 2.5 mg/0.5 mL pen injector 2.5 mg SUBCUT QWEEK Health Concerns: Post Hospitalization: new medications and changes needed to prevent readmission or further decline. Pt educated and given instructions on all concerns. Plan of Treatment: Continue with present treatment and follow up plan. Pt is to keep follow up appointment as instructed and take medications as ordered. Orders to Discharge Patient Discharge Orders: Transfer (Routine); Ordered 01/30/25 Ordered By: Bogdan Anedrson Follow ups/Referrals Follow ups/Referrals: STONEY SORENSEN [Primary Care Provider, Unknown] - 3 days Instructions Stand Alone Forms: Find Help Web Site, Post Hospital Follow Up Care Print Language: KINYARWANDA
[2025-01-30] MEDS: MAG-OX TAB PO ONE (19:11)
[2025-01-30] MEDS: NS 1,000 ML IV 1,000 ML IV ONE ×2 (19:11→20:39)
[2025-01-30] MEDS ORDERED: NS 1,000 ML IV 1,000 ML ONE (20:15)
[2025-01-30] MEDS: APRESOLINE INJ 20 MG VIAL IVP ONE (20:39)
[2025-01-30] MEDS: CATAPRES TAB 0.1 MG PO ONE (22:21)
[2025-01-30] MEDS ORDERED: NITROSTAT SL PRN (22:50)
--- NOTE | 2025-01-30 23:12 | EKG ---
Test Reason : Chest pain Blood Pressure : */* mmHG Vent. Rate : 70 BPM Atrial Rate : 70 BPM P-R Int : * ms QRS Dur : 168 ms QT Int : 466 ms P-R-T Axes : 73 253 92 degrees QTc Int : 503 ms Ventricular-paced rhythm with occasional AV dual-paced complexes /pvcs Biventricular pacemaker detected Abnormal ECG When compared with ECG of 30-JAN-2025 17:22, (Unconfirmed) Vent. rate has decreased BY 2 BPM Confirmed by Mark Brice MD ([id number]) on 01/31/2025 7:18:19 AM Referred By: Confirmed By: Mark Brice MD
[2025-01-31] MEDS: NS 1,000 ML IV 1,000 ML IV SCH
[2025-01-31] MEDS: ELIQUIS PO SCH (00:01)
[2025-01-31] MEDS: PROTONIX TAB 40 MG PO SCH (00:02)
[2025-01-31] MEDS: COREG TAB 25 MG PO SCH (00:03)
[2025-01-31] MEDS: NEURONTIN TAB 600 MG PO SCH (00:04)
[2025-01-31 00:47] VITALS: BMI 31.0
[2025-01-31] MEDS: NovoLIN R (or HumuLIN R) SUBCUT PRN (00:57)
--- NOTE | 2025-01-31 04:43 | RAD ---
PROCEDURE: Chest X-ray 2 Views. HISTORY: c/o left CW pain that radiates to left shoulder since Thursday; rates pain 4/10; last NTG taken on Thursday was effective for pain relief. c/o weakness and feeling tired, aching all over; SOB; . TECHNIQUE: PA and lateral views. COMPARISON: 10/11/2024. TECHNICAL QUALITY: Satisfactory. FINDINGS: Normal-sized heart with pacemaker on the left and previous sternotomy. Mediastinum and hilar regions show no masses or lymphadenopathy. Normal central vascularity. No pulmonary consolidation, masses, pleural fluid, or pneumothorax. No acute bony abnormality. IMPRESSION: No evidence of active cardiopulmonary disease. THIS IS AN ELECTRONICALLY VERIFIED FINAL REPORT 01/31/2025 4:40 AM - Electronically signed by Miguel Angel Vázquez MD
--- NOTE | 2025-01-31 04:55 | EKG ---
Test Reason : Chest pain Blood Pressure : */* mmHG Vent. Rate : 69 BPM Atrial Rate : 47 BPM P-R Int : * ms QRS Dur : 164 ms QT Int : 466 ms P-R-T Axes : 50 248 86 degrees QTc Int : 499 ms A- Ventricular-paced rhythm /pvcs Biventricular pacemaker detected Abnormal ECG When compared with ECG of 30-JAN-2025 23:03, (Unconfirmed) No significant change was found Confirmed by Mark Brice MD ([id number]) on 01/31/2025 7:18:01 AM Referred By: Confirmed By: Mark Brice MD
[2025-01-31 05:00] LABS: MEAN PLATELET VOLUME 9.1 fL (7.4-11.0); RED CELL DISTRIBUTION WIDTH 15.7 % (11.6-16.5)
[2025-01-31 05:11] LABS: CHOL/HDL RATIO 2.9 (0.0-5.0); COR NA(FOR HYPERGLY) 136 mmol/L (136-145); CREATININE 1.22 mg/dL (0.70-1.30); eGFR NON BLACK RACES > 60 (>60)
--- NOTE | 2025-01-31 06:58 | RAD ---
EXAMINATION: CHEST, 1 VIEW HISTORY: CHEST PAIN, DYSPNEA ON EXERTION ; MA, CAD, HTN, DM, GERD, GOUT, SLEEP APNEA, HX DVT SX: ANGIO/STENTS, APPY, PACEMAKER . COMPARISON STUDY: 01/30/2025 TECHNIQUE: A single view of the chest was obtained. FINDINGS: Median sternotomy. Left-sided AICD device.. Heart size is normal. No acute infiltrates. There is no pneumothorax. Hilar and mediastinal structures and bony structures are unremarkable. EKG leads overlie the chest. IMPRESSION: No acute process in the chest. No change compared with prior THIS IS AN ELECTRONICALLY VERIFIED FINAL REPORT 01/31/2025 6:55 AM - Electronically signed by Alexis Aldana MD
[2025-01-31] MEDS: MAG-OX TAB ONE (07:55)
[2025-01-31] MEDS: COREG TAB 25 MG PO ONE (07:56)
[2025-01-31] MEDS: NS 1,000 ML IV 1,000 ML ONE (07:57)
[2025-01-31] MEDS: IMDUR PO SCH (08:08)
[2025-01-31] MEDS: TRICOR TAB 48 MG PO SCH (08:08)
[2025-01-31] MEDS: ZYLOPRIM PO SCH (08:14)
[2025-01-31] MEDS: CRESTOR TAB 10 MG PO SCH (08:14)
[2025-01-31 10:36] VITALS: BP 139/72; PULSE 60; RESP 20; TEMP 97.9; O2SAT 96
--- NOTE | 2025-01-31 17:02 | DR.SSS ---
SHORT STAY SUMMARY Admission Date Date of Admission: 01/30/25 Discharge Date Discharge Date: 01/31/25 Admission Diagnoses Admission Diagnoses: Chest pain, LOGAN, rhabdomyolysis Discharge Diagnoses Discharge Diagnoses: Same Chief Complaint Chief Complaint: leg pain, chest pain History of Present Illness History of Present Illness: Patient came to the ER due to chest pain, fatigue, and leg heaviness. He has been dealing with a leg heaviness for months now, but it acutely worsened yesterday. He had been working outdoors in he and his spouse thought he may be dehydrated. He does have a strong, personal cardiac history. This was also concerning to them. ER workup was benign other than elevated CPK and creatinine. Vitals overall stable with mild hypomagnesemia. ROS: 12 point ROS negative except as noted above. PE: Well-developed, well-nourished male in no acute distress. Head NCAT, EOMI, PERRLA. Heart regular rate and rhythm. Lungs are clear bilaterally with strong speech. Belly is soft and nontender with bowel sounds present. Chest wall expansion is normal with a well-healed scar in the left upper chest wall. Mood and affect are appropriate. No swelling of his extremities. Able to move all extremities equally well. Patient woke up this morning feeling much better. Legs are still little heavy but not like they have been over the past few days. Serum creatinine has improved along with great improvement in his CPK. Still hypomagnesemic but otherwise stable. He is requesting to go home. Spouse at bedside. Past Medical History Past Medical History: Coronary Artery Disease, Diabetes, Dyslipidemia, GERD, Gout, Hypertension, IL and Sleep Apnea Past Surgical History Surgical History: Angioplasty/Stents and Appendectomy Allergies Allergies Allergy/AdvReac Type Severity Reaction Status Date / Time No Known Drug Allergies Allergy Verified 01/30/25 17:45 Medications Home Medications: No Known Drug Allergies Allergy (Verified 01/30/25 17:45) CONTINUE taking the following medications carvedilol 25 mg tablet 25 mg PO BID 01/30/25 [History] tirzepatide 2.5 mg/0.5 mL subcutaneous pen injector (Mounjaro) 2.5 mg subcut QWEEK 01/30/25 [History] tizanidine 4 mg tablet 4 mg PO BID 01/30/25 [History] Family History Family Medical History: Diabetes Mellitus, Cancer, IL and Hypertension Social History Does patient currently use any type of tobacco product: Yes Have you used tobacco products in the last 12 months: Yes Type of Tobacco Use: Smokeless Does any household member use tobacco: Yes Alcohol Use: None Drug Use: None Physical Exam Vital Signs: Last Vital Signs Temp 97.4 F L 01/31/25 04:00 Pulse 59 L 01/31/25 04:00 Resp 17 01/31/25 04:00 BP 139/77 01/31/25 04:00 Pulse Ox 95 01/31/25 04:00 O2 Del Method Room Air 01/31/25 04:00 Labs Labs: Laboratory Last Values WBC 8.9 X10^3/uL (3.6-10.0) 01/31/25 04:44 RBC 6.24 X10^6/uL (4.7-6.0) H 01/31/25 04:44 Hgb 16.6 g/dL (13.5-18.0) 01/31/25 04:44 Hct 48.9 % (42.0-54.0) 01/31/25 04:44 MCV 78.3 fL (80.0-100.0) L 01/31/25 04:44 MCH 26.6 pg (27.0-34.0) L 01/31/25 04:44 MCHC 33.9 g/dL (33.0-35.0) 01/31/25 04:44 RDW 15.7 % (11.6-16.5) 01/31/25 04:44 Plt Count 173 X10^3/uL (150.0-450.0) 01/31/25 04:44 MPV 9.1 fL (7.4-11.0) 01/31/25 04:44 Neut % (Auto) 56.8 % (42.0-75.0) 01/31/25 04:44 Lymph % (Auto) 25.4 % (21.0-51.0) 01/31/25 04:44 [place] % (Auto) 14.3 % (0.0-13.0) H 01/31/25 04:44 Eos % (Auto) 3.0 % (0.9-2.9) H 01/31/25 04:44 Baso % (Auto) 0.5 % (0.2-1.0) 01/31/25 04:44 Neut # (Auto) 5.1 x10^3/uL (2.2-4.8) H 01/31/25 04:44 Lymph # (Auto) 2.3 X10^3/uL (1.3-2.9) 01/31/25 04:44 [place] # (Auto) 1.3 x10^3/uL (0.3-0.8) H 01/31/25 04:44 Eos # (Auto) 0.3 x10^3/uL (0.0-0.2) H 01/31/25 04:44 Baso # (Auto) 0.0 X10^3/uL (0.0-0.1) 01/31/25 04:44 Absolute Nucleated RBC 0.1 /100WBC 01/31/25 04:44 Sodium 135 mmol/L (136-145) L 01/31/25 04:44 Corrected Sodium 136 mmol/L (136-145) 01/31/25 04:44 Potassium 3.7 mmol/L (3.5-5.1) 01/31/25 04:44 Chloride 101 mmol/L (98-107) 01/31/25 04:44 Carbon Dioxide 30.2 mmol/L (21-32) 01/31/25 04:44 BUN 14 mg/dL (7-18) 01/31/25 04:44 Creatinine 1.22 mg/dL (0.70-1.30) 01/31/25 04:44 Est GFR (MDRD) Af Amer > 60 (>60) 01/31/25 04:44 Est GFR (MDRD) Non-Af > 60 (>60) 01/31/25 04:44 Glucose 146 mg/dL (65-99) H 01/31/25 04:44 POC Glucose (mg/dL) 154 mg/dL (65-99) H 01/31/25 05:20 Calcium 8.7 mg/dL (8.5-10.1) 01/31/25 04:44 Corrected Calcium TNP 01/31/25 04:44 Magnesium 1.5 mg/dL (2.0-2.9) L 01/31/25 04:44 Total Bilirubin 0.30 mg/dL (0.2-1.0) 01/31/25 04:44 AST 53 Units/L (15-37) H 01/31/25 04:44 ALT 49 Units/L (12-78) 01/31/25 04:44 Alkaline Phosphatase 92 Units/L (46-116) 01/31/25 04:44 Creatine Kinase 405 Units/L (39-308) H 01/31/25 04:44 Troponin I High Sens 19.7 ng/L (4.0-60.0) 01/31/25 04:44 B-Natriuretic Peptide 46.8 pg/mL (0-79) 01/30/25 17:05 Total Protein 6.9 g/dL (6.4-8.2) 01/31/25 04:44 Albumin 3.9 g/dL (3.4-5.0) 01/31/25 04:44 Globulin 3.0 g/dL (2.5-4.5) 01/31/25 04:44 Albumin/Globulin Ratio 1.3 Ratio (1.1-2.1) 01/31/25 04:44 Triglycerides 256 mg/dL (0-150) H 01/31/25 04:44 Cholesterol 80 mg/dL (0-200) 01/31/25 04:44 LDL Cholesterol, Calc 1 mg/dL (0-100) 01/31/25 04:44 HDL Cholesterol 28 mg/dL (40-60) L 01/31/25 04:44 Cholesterol/HDL Ratio 2.9 (0.0-5.0) 01/31/25 04:44 Specimen Type Clean catch urine 01/30/25 17:19 Urine Color Yellow (YELLOW) 01/30/25 17:19 Urine Appearance Clear (CLEAR) 01/30/25 17:19 Urine pH 5.0 (5.0 - 8.0) 01/30/25 17:19 Ur Specific [place] 1.010 (1.000-1.030) 01/30/25 17:19 Urine Protein Negative (NEGATIVE) 01/30/25 17:19 Urine Glucose (UA) Negative (NEGATIVE) 01/30/25 17:19 Urine Ketones Negative (NEGATIVE) 01/30/25 17:19 Urine Blood Negative (NEGATIVE) 01/30/25 17:19 Urine Nitrite Negative (NEGATIVE) 01/30/25 17:19 Urine Bilirubin Negative (NEGATIVE) 01/30/25 17:19 Urine Urobilinogen Normal (NORMAL) 01/30/25 17:19 Ur Leukocyte Esterase Negative (NEGATIVE) 01/30/25 17:19 Assessment/Plan (1) Rhabdomyolysis: (2) Acute kidney injury: (3) Hypomagnesemia: (4) Chest pain: (5) Essential (primary) hypertension: (6) Type 2 diabetes mellitus with hyperglycemia: (7) Mixed hyperlipidemia: (8) Coronary artery disease with stable angina pectoris: (9) Testicular hypofunction: (10) Type 2 diabetes mellitus with diabetic polyneuropathy: (11) GERD without esophagitis: Hospital Course Hospital Course: Patient was admitted for chest pain rule out and concerns about LOGAN and rhabdomyolysis. He was thought to be in rhabdo due to dehydration. He responded well to gentle hydration. Decision made between patient, spouse, and us to discharge home with follow-up with PCP. We think the risk of cardiac event is very low. He was instructed on proper hydration. No medication changes at discharge. Discharge Medications Discharge Medications: Home Medication List carvedilol 25 mg tablet 25 mg PO BID 01/30/25 [History] tirzepatide 2.5 mg/0.5 mL subcutaneous pen injector (Mounjaro) 2.5 mg subcut QWEEK 01/30/25 [History] tizanidine 4 mg tablet 4 mg PO BID 01/30/25 [History] Prescriptions: Discharge Plan Discharge Plan Patient Disposition: 01 HOME, SELF-CARE Condition: Stable Health Concerns: Post Hospitalization: new medications and changes needed to prevent readmission or further decline. Pt educated and given instructions on all concerns. Care Plan Goals: Problem: Pain/Alteration in Comfort Goal: Improve/ Resolve Pain; Achieve Pain Tolerance Instructions: Take pain medications as prescribed. Contact your primary care provider if your pain is unrelieved or worsens. Follow up with primary care provider as directed. Plan of Treatment: Continue with present treatment and follow up plan. Pt is to keep follow up appointment as instructed and take medications as ordered. Prescription drug monitoring program results: PDMP reviewed and no concerns identified Prescriptions: No Action metformin 500 mg tablet 500 mg PO BID gabapentin 600 mg tablet 600 mg PO TID isosorbide mononitrate 30 mg tablet extended release 24 hr 30 mg PO QAM allopurinol 100 mg tablet 100 mg PO QDAY hydrocodone-acetaminophen 10-325 mg tablet 1 tab PO Q6H PRN levothyroxine 50 mcg tablet 50 mcg PO QAM pantoprazole 40 mg tablet,delayed release (DR/EC) 40 mg PO BID cyanocobalamin (vitamin B-12) 1,000 mcg/mL solution 1,000 mcg IM QMONTH testosterone cypionate 200 mg/mL oil 200 mg IM Q2W rosuvastatin 20 mg tablet 20 mg PO QDAY levocetirizine 5 mg tablet 5 mg PO QPM fenofibrate 54 mg tablet 54 mg PO QDAY Eliquis 5 mg tablet 5 mg PO BID nitroglycerin 0.4 mg tablet, sublingual 0.4 mg sublingual PRN PRN insulin lispro [Humalog KwikPen Insulin] 100 unit/mL insulin pen See Rx Instructions .ROUTE .COMPLEX Rx Instructions: PER S/S carvedilol 25 mg tablet 25 mg PO BID tizanidine 4 mg tablet 4 mg PO BID Mounjaro 2.5 mg/0.5 mL pen injector 2.5 mg SUBCUT QWEEK Orders to Discharge Patient Discharge Orders: Discharge (Routine); Ordered 01/31/25 Ordered By: Jluis Moreno Follow ups/Referrals Follow ups/Referrals: STONEY HEARN [Primary Care Provider, Unknown] - 02/09/25 10:30 am Instructions Instructions: Chest Wall Pain, [id number], Chest Wall Pain Stand Alone Forms: Excuse From Work or School, Find Help Web Site, Post Hospital Follow Up Care Print Language: BAHRAINI
[2025-01-31] MEDS ORDERED: SNACK - Diabetic Appropriate PO SCH (20:00)
[2025-03-01] MEDS ORDERED: VITAMIN B-12 INJ IM SCH (09:00)
== END 2025-01-31 09:30 | disposition home or self-care (01) ==
LOC: MED/SURG 16:41 → ER 16:41 → MED/SURG 22:35
PROVIDERS: ADMIT Family Medicine; ATTEND Family Medicine